=== PATIENT | male | born 1990 | race Caucasian/White ===

== ENCOUNTER 2023-10-02 12:37 | Emergency (ER) | payer MEDICAID ==
[~2023-10-02] VITALS: Ht 160 cm; Wt 78.0 kg
[2023-10-02] MEDS ORDERED: ACETAMINOPHEN ES 500 MG TABLET ONE (12:57)
[2023-10-02] MEDS ORDERED: BACI/NEOM/POLY B OINT PKT 1 UDPKT PACKET ONE (12:57)
[2023-10-02] MEDS ORDERED: AMOX/CLAVULANATE 875 MG TABLET ONE (12:58)
[2023-10-02] MEDS ORDERED: TDAP [DIPH/PERTUSSIS/TET] 0.5 ML VIAL IM ONE (12:58)
[2023-10-02] MEDS: AMOX/CLAVULANATE 875 MG TABLET PO ONE (13:01)
[2023-10-02] MEDS: TDAP [DIPH/PERTUSSIS/TET] 0.5 ML VIAL IM ONE (13:01)
[2023-10-02] MEDS: ACETAMINOPHEN ES 500 MG TABLET PO ONE (13:01)
[2023-10-02] MEDS: BACI/NEOM/POLY B OINT PKT 1 UDPKT PACKET TP ONE (13:01)
[2023-10-02] MEDS ORDERED: AMOX-430 PO (13:23)
[2023-10-02] MEDS ORDERED: ACET-2605 PO (13:23)
[2023-10-02] MEDS ORDERED: IBUP-1490 PO (13:23)
[2023-10-02 13:29] VITALS: BP 134/77; TEMP 98.5; O2SAT 100
== END 2023-10-02 13:29 | disposition home or self-care (01) ==
LOC: ER 12:37
DX: S30.871A Other superficial bite of abdominal wall, initial encounter (principal); Z60.2 Problems related to living alone; W54.0XXA Bitten by dog, initial encounter; Y93.89 Activity, other specified; Y92.89 Other specified places as the place of occurrence of the external cause; Y99.8 Other external cause status
CPT/HCPCS: 90715